=== PATIENT | male | born 1955 | race Caucasian/White ===

== ENCOUNTER → 2024-12-27 10:45 | Outpatient (REF) | payer OTHER, SELFPAY ==
--- NOTE | 2024-12-27 10:50 | CA_ITS ---
Acquisition Time: 2024-12-27 10:56:53 Total Exercise Time: 00:07:41 Test Indications: CP Medications: SEE H&P Protocol: BRENDA Max HR: 146 BPM 97% of Pred: 150 BPM Max BP: 178/70 mmHG Max Work Load: 9.5 METS Exercise stress test with exercise 7 mins 41 secs of Brenda Protocol, acheiving 94% MPHR, with reports of moderate SOB, no chest pain, with frequent PACs, isolated PVCs with one couplet and 2 triplets, with normotensive response to exercise. Without EKG changes meeting critreia for ischemia. In recovery, breathing returned to baseline. Echo images obtained by tech at rest and post peak exercise. Definity contrast utilized. Test reviewed with Dr. Degroot. Referred By: Marco Perez Electronically Signed By: Quentin Espino
--- OUTSIDE RECORDS SUMMARY | 2024-12-27 11:48 | XMS_ITS | Encounter Summary ---
Author Name [facility] Organization [facility] [place] Address [address] [place] [address] Care Team Providers Care Sports Psychologist Name Role Phone KENDRA WILHELM Primary Care Provider Unavailabl e Insurance Providers: All historical and current Section Date Range: From patient's date of to the date document was created. This section includes the names of all active insurance providers for the patient. Insurance Provider Type of Coverage Plan Name Start of Policy Coverage End of Policy Coverage Group Number Member ID Insurance Provider's Telephone Number Policy Malone's Name Patient's Relationship to Policy Malone [facility]D (WNR) MEDICARE ADVANTAGE IN PPO [employer] Dec 15, 2018 [id number] HARSHIL JACOBSON PATIENT [facility] PREFERRED PROVIDER ORGANIZAT ION (PPO) Aug 17, 2014 [id number] HARSHIL JACOBSON PATIENT [employer] PRESCRIPT ION HEALT H [facility] [place] Aug 17, 2014 NONE [id number] HARSHIL JACOBSON PATIENT Selected Encounter This section includes the information on record at OR for the Encounter. Date/Time Encounter Type Encounter Description Reason Provider Source Jan 17, 2024 01:00 PM OFFICE O/P EST MOD 30 MIN [facility] - IND ICD-10-CM F43.12 Post-traumatic stress disorder, chronic LUCIUS VEE Encounter Template Text not used by VA Assessments - Encounter Diagnoses This section includes the primary and secondary diagnoses documented for the Encounter. Date/Time Primary/Secondary Diagnosis Diagnosis Name Provider Source Jan 17, 2024 01:38 PM PRIMARY Post-traumatic stress disorder, chronic LUCIUS VEE Jan 17, 2024 01:38 PM SECONDARY Anxiety disorder, unspecified LUCIUS VEE Plan of Treatment: Future Appointments (+ 6 months) and Future Tests (+/- 45 days) The Plan of Treatment section includes future care activities for the patient from [facility] This section includes future appointments and future orders which are active, pending or scheduled. Future Appointments This section includes appointments that were scheduled to occur 6 months from the date of the Encounter, up to a maximum of 20 appointments. The data comes from all [facility]. Appointment Date/Time Appointment Type Appointme nt Facility Name Feb 01, 2024 09:00 AM AMBULATORY - MEDICINE [facility] Feb 07, 2024 09:00 AM AMBULATORY MEDICINE [facility] Apr 10, 2024 10:30 AM AMBULATORY MEDICINE [facility] Apr 18, 2024 01:30 PM AMBULATORY - PSYCHIATRY [facility] Jun 04, 2024 01:00 PM AMBULATORY MEDICINE [facility] Jun 18, 2024 01:30 PM AMBULATORY MEDICINE [facility] Jul 05, 2024 03:00 PM AMBULATORY MEDICINE [facility] Jul 18, 2024 01:00 PM AMBULATORY PSYCHIATRY [facility] Active, Pending, and Scheduled Orders This section includes a listing of several types of active, pending, and scheduled orders, including clinic medications orders, diagnostic test orders, procedure orders and consult orders; where the start date of the order is 45 days before the date of the Encounter or 45 days after the date of theEncounter. The data comes from all [facility]. Test Date/Time Test Type Test Details Facility Name Jan 02, 2024 12:00 AM Laboratory - Chemi stry Order BASIC METABOLIC PANEL (non-fasting) BLOOD ([facility]SERUM[facility] Social History: Smoking Status (Most current) and Tobacco Use (All prior to encounter date) This section includes the most current, and the historical, smoking and tobacco- related health factors from the OR facility where the Encounter took place. Current Smoking Status This section includes the most current smoking, or tobacco-related health factor, from the OR facility where the Encounter took place. Date/Time Current Smoking Status Comment Panda gupta Apr 10, 2023 11:30 AM VA-TOBACCO NEVER USED [facility] Tobacco Use History This section includes a history of the smoking, or tobacco-related health factors, that were collected on or before the date of the Encounter. The data comes from the OR facility where the Encounter took place. Date/Time Smoking Status/Tobacco Use Comment F acility Jun 30, 2021 02:00 PM VA-TOBACCO NEVER USED [facility] Jul 16, 2020 01:30 PM VA-TOBACCO FORMER USER [facility] Jul 16, 2020 01:30 PM VA-TOBACCO QUIT 5 TO < 15 YRS [facility] Mar 05, 2018 10:17 AM QUIT TOBACCO USE > 7 YEARS AGO [facility] Oct 31, 2016 09:00 AM QUIT TOBACCO USE > 7 YEARS AGO quit 8 years [facility] Oct 05, 2015 09:03 AM QUIT TOBACCO USE > 7 YEARS AGO [facility] Oct 05, 2015 09:03 AM QUIT TOBACCO USE 1-7 YEARS AGO [facility] Radiology Reports: +/- 30 days of the encounter Radiology Reports For cases when an order for radiology services may have been completed prior to the date of the Encounter, the report list includes the Radiology Reports that were completed up to 30 days before dateof the Encounter. For cases when an order for radiology services may have been completed after the date of the Encounter, the report list also includes the Radiology Reports that were completed up to30 days after date of the Encounter. The data comes from all [place] treatment facilities. Date/Time Radiology Report Provider Source Jan 15, 2024 01:[address] THORAX W/O CONT: HARSHIL JACOBSON [id number] -[id number] M Exm Date: JAN 15, 2024@13:28 Req Phys: BENJAMIN MCKEON Pat Loc: CWM/SO/PACT 9 (Req'g Loc) Img Loc: NHM/CT Service: Unknown [facility] , (Case 30 COMPLETE) CT THORAX W/O CONT (CT Detailed) CPT:97101 Reason for Study: Pulmonary emphysema and Lung Nodule Clinical History: Ordering provider: Radha Barr FAX # [phone] PHONE # [phone] Pulm /SPFLD 175 Report Status: Verified Date Reported: JAN 18, 2024 Date Verified: JAN 18, 2024 Manager Market Development E-Sig: Report: CT THORAX W/O CONT HISTORY: Pulmonary emphysema and Lung Nodule COMPARISON: 11/02/2022 and 10/22/2020 TECHNIQUE: Helical CT of the chest, with multiplanar reformats, was performed at the local OR facility. 1286 images were received by the [place] National Teleradiology Program (NTP) for interpretation. RADIATION DOSE (mGy*cm): 127.2 IV CONTRAST: Not administered. FINDINGS: Lower Neck: Normal. Airways: Diffuse mild bronchial wall thickening. Lungs: Marked centrilobular emphysematous changes of the lungs. Stable calcified granulomata in both lungs. Stable 0.6 cm nodule in the left lower lobe (series 8, image 263) dating back to at least 10/22/2020. Pleura: No pleural effusion or pneumothorax. Mediastinum: Normal heart size. No significant coronary artery calcifications. No pericardial effusion. Patulous esophagus with mild circumferential wall thickening of the distal esophagus. Great Vessels: Normal caliber of the thoracic aorta. Mild atherosclerotic calcification. Lymph Nodes: Normal in size. Upper Abdomen: Bilateral renal cysts. Small to moderate sliding hiatal hernia. Chest Wall: Normal. Bones: Mild degenerative changes of the spine. Impression: 1. Stable 0.6 cm nodule in the left lower lobe dating back to at least 10/22/2020, and likely benign. No new suspicious pulmonary nodules identified. 2. Diffuse mild bronchial wall thickening compatible with small airways disease. 3. Marked centrilobular emphysematous changes of the lungs. 4. Small to moderate sliding hiatal hernia. There is also a patulous esophagus with mild circumferential wall thickening distally, which can be seen with esophagitis. 5. Atherosclerotic vascular disease. READING PHYSICIAN: Ayden Hayes -[phone] 01/18/2024 8:26 PDT [facility] National Teleradiology Program [phone] (For Medical Practitioner Use Only) Attention Patients / Veterans: If you have questions or concerns about these test results, please contact your ordering provider or primary care team. Primary Diagnostic Code: NO ALERT REQUIRED Primary Interpreting Staff: RADIOLOGY,OUTSIDE SERVICE, Staff Physician / RADIOLOGY,OUTSIDE SERVICE [facility] Encounter Notes: All associated encounter notes This section contains the clinical notes associated to the Encounter. Date/Time Encounter Note(s) Provider Source Jan 17, 2024 01:31 PM PSYCHIATRY NOTE: LOCAL TITLE: PSYCHIATRY NOTE STANDARD TITLE: PSYCHIATRY NOTE DATE OF NOTE: JAN 17, 2024@13:31 ENTRY DATE: JAN 17, 2024@13:31:50 AUTHOR: LUCIUS VEE EXP COSIGNER: URGENCY: STATUS: COMPLETED Time spent: 21-30 minutes >16 mins supportive therapy. The presents today for follow-up. PATIENT REPORT: Harshil presents with euthymic mood. He is conversational. He denies symptoms of depression. There are normal interests, motivations, and energy. Symptoms of PTSD are chronic but less acute with medication. He feels that the medicine is of continued benefit. He continues to benefit from sleep medicine, particularly due to pain associated with MAG. He has been doing well with reduced number of monthly lorazepam (#35), and sometimes takes half-a-tab with benefi on his anxiety. Anxiety peaks at times--medication is helpful. He and his recently returned from a trip to [facility], and are looking forward to an upcoming trip to [place] (second in two years). They plan to take the to [place] this winter. He is enjoying [employer]. He and have a campground on [place]. He feels that the medications are of continued benefit. He sleeps well with medication; otherwise, he has significant difficulties. He sometimes deals with mild morning fatigue, and wonders if ramelteon may be contributory. 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 He sees Dr. Washburn at [facility]. This gets him down at times. However, he maintains his busy yoga schedule which he feels has been vital to his health and wellness. Tim presents with good self-care. He was cooperative with questions asked. Cognitive exam was grossly intact. TP was logical and organized. TC was pertinent to topic. Speech was of regular rate, rhythm, volume, and tone. Mood was euthymic and affect full. He denied SI and HI. Insight and judgment were intact. 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 He is quite proud of his son and daughter. His son works in IT, while his daughter is a nurse. His [id number] is a DNP. ACTIVE OUTPATIENT MEDICATIONS (including Supplies): Active Outpatient Medications (including Supplies): ALBUTEROL 90MCG (CFC-F) 200D ORAL INHL INHALE 2 PUFFS BY ACTIVE MOUTH EVERY 4 HOURS NEEDED FOR WHEEZING CETIRIZINE HCL 10MG TAB TAKE ONE TABLET BY MOUTH ONCE ACTIVE DAILY FOR ALLERGIES CONDOM LATEX LUBRICATED USE 1 CONDOM DIRECTED ONCE ACTIVE DAILY NEEDED FOR PERSONAL USE LIDOCAINE HCL 2% TOP JELLY APPLY THIN FILM TOPICALLY ONCE HOLD DAILY NEEDED FOR LOCAL ANESTHESIA FOR URETHRAL PAIN LIDOCAINE HCL 4% TOP SOLN APPLY SMALL AMOUNT TOPICALLY ACTIVE ONCE DAILY NEEDED LORAZEPAM 0.5MG TAB TAKE ONE TABLET BY MOUTH TWICE DAILY ACTIVE NEEDED FOR ANXIETY LORAZEPAM 0.5MG TAB TAKE ONE TABLET BY MOUTH TWICE DAILY PENDING NEEDED MAGNESIUM OXIDE 420MG TAB TAKE ONE TABLET BY MOUTH ONCE ACTIVE (S) DAILY MIRTAZAPINE 30MG TAB TAKE ONE TABLET BY MOUTH AT BEDTIME ACTIVE FOR MOOD/ PTSD MIRTAZAPINE 30MG TAB TAKE ONE TABLET BY MOUTH AT BEDTIME PENDING FOR MOOD/ PTSD OMEPRAZOLE 20MG EC CAP TAKE TWO CAPSULES BY MOUTH ONCE ACTIVE DAILY DIRECTED BY PROVIDER PREGABALIN 300MG ORAL CAP TAKE ONE CAPSULE BY MOUTH TWICE ACTIVE DAILY FOR NERVE PAIN RAMELTEON 8MG TAB TAKE ONE TABLET BY MOUTH AT BEDTIME FOR ACTIVE SLEEP. RAMELTEON 8MG TAB TAKE ONE TABLET BY MOUTH AT BEDTIME FOR PENDING SLEEP. SILDENAFIL CITRATE 100MG TAB TAKE ONE TABLET BY MOUTH ONCE ACTIVE DAILY NEEDED TAKE 1 HOUR PRIOR TO SEXUAL ACTIVITY Non-VA SAW PALMETTO CAP/TAB 160MG BY MOUTH TWICE DAILY ACTIVE ALLERGIES: Patient has answered NKA I discussed the findings and plan with the patient. I educated the patient about their mental health condition. repeated back the plan and education. 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 He attempted a small dose decrease after previous visit but preferred to go back to 30mg. Labs from 04/10/23 reviewed. Continue ramelteon 8mg QHS for sleep. He will trial withholding the medication on nights when he needs to be up and alert the following morning, as he feels it may be contributing to mild morning tiredness. As for lorazepam, this is a medicine that has been on for several years and which he came to me on. He feels that it is helpful, especially for night time anxiety/ worry about his breathing. I have provided education about the benzo, that it is not an ideal long-term medication and how it can lead to addiction/ tolerance. Have also dicussed studies demonstrating increased risk for dementia when taken chronically. At last visit we reduced the total number of monthly lorazepam to 35 a month, and he has been doign well with this number. He occasionally takes half-a-tab with some success. I have educated the patient about the side effect profile of the benzodiazepine, including potential for medation, for impaired coordination, for falling, and for impaired cognition. The patient was advised not to drive after taking the medication. The patient was advised about the potential for excessive sedation when the medication is taken with other medications. The patient was advised not to take the medication with alcohol. The patient was advised about the potential for addiction to the medication. The concepts in the medication treatment contract were reviewed with the patient and the patient agreed. The patient demonstrated good understanding of the benzodiazepine side effect profile. The benefits of treatment with the medication outweigh risks for this patient. UDS from 07/03/23 reviewed--he is encouraged to refrain from marijuana. Will continue to explore future opportunities to decrease. opted off the [facility]. He was previously seen briefly by Dr. Ang. I offered a referral again today to therapy but he declines. He feels that he has good supports. Have discussed referral to PTSD group, but he declined. The patient denied suicidal and violent ideation, but the suicide prevention information and hotline were reviewed with the patient. The patient also understands to call 911 or to go to ER in the event of an emergency. I completed a thorough risk assessment today, taking into consideration both the patient's risk factors andprotective factors. After careful consideration, it is my clinical opinion that the is probably at low- risk for harm to self and others. The rationale for the psychiatric medications and the alternatives to treatment were discussed with the patient. The side effect profile of the psychiatric medications was reviewed with the patient. This also included discussion of potential drug interactions with the psychiatric medication. Patient demonstrated reasonable understanding of the medication side effects and the above issues. The benefits of psychiatric medications outweigh risks for this patient. I asked the patient to call the clinic or to come to open access if the patient does not like the effect of psychiatric medication or if has side effects with psychiatric medication. Follow-up with PCP for regular health maintenance. FOLLOW-UP: 12 weeks, sooner if needed REMINDERS: Medication Reconciliation: Outpatient: Has the patient been taking medications as documented in the EMLR? YES: The patient has been taking medications as documented in the EMLR. Essential Medication List for Review used to complete this medication reconciliation. INCLUDED IN THIS LIST: Alphabetical list of active outpatient prescriptions dispensed from this [facility] (local) and dispensed from another OR or DoD facility (remote) as well as inpatient orders (local, pending and active), local clinic medications, locally documented non-VA medications, and local prescriptions that have or been discontinued in the past 90 days. - All changes in medications, including all non-VA/Herbal/OTC medications were entered into CPRS. - If there were any medications the patient should no longer take, they were discontinued. - The patient/caregiver was instructed to update this list, discard old lists, and take this list to the next appointment, whether with a VA or non-VA provider. /leni/ LUCIUS VEE DO Psychiatrist Signed: 01/17/2024 13:38 LUCIUS VEE Jan 17, 2024 01:25 PM ACCOUNTING OF DISC LOSURES NOTE: LOCAL TITLE: STATE PRESCRIPTION DRUG MONITORING PROGRAM STANDARD TITLE: ACCOUNTING OF DISCLOSURES NOTE DATE OF NOTE: JAN 17, 2024@13:25:05 ENTRY DATE: JAN 17, 2024@13:25:05 AUTHOR: LUCIUS VEE EXP COSIGNER: URGENCY: STATUS: COMPLETED This PDMP query was submitted by Lucius Vee MD. The clinical justification for this PDMP query is to review controlled substances prescribed outside of the VA, and any additional information that may become available, as an important component of standard clinical care, and in accordance with [facility] policy. Patient information was shared with the PDMP [place]. No prescription(s) for controlled substances outside the VA were found in the last 90 days. /leni/ LUCIUS VEE DO Psychiatrist Signed: 01/17/2024 13:25 LUCIUS VEE [facility]
== END ==
LOC: HO.CARD 10:45
PROVIDERS: Visit Provider Nurse Practitioner Gerontology
DX: R07.89 Other chest pain (principal)
CPT/HCPCS: 93350; Q9957

== ENCOUNTER → 2024-12-27 10:50 | Outpatient (BNV) | payer OTHER, SELFPAY | DX: R06.02 Shortness of breath (principal); R94.31 Abnormal electrocardiogram [ECG] [EKG]; I49.3 Ventricular premature depolarization | CPT/HCPCS: 93016; 93018; 93350; 93352 ==